=== PATIENT | male | born 1980 | race Caucasian/White ===

== ENCOUNTER 2023-07-28 14:56 | Emergency (ER) | payer MEDICAID ==
[~2023-07-28] VITALS: Ht 170.2 cm; Wt 90.7 kg
[2023-07-28 15:01] VITALS: BP 123/77; PULSE 81; RESP 18; TEMP 98; O2SAT 98
[2023-07-28] MEDS ORDERED: ACET-10509 PO (15:34)
[2023-07-28] MEDS ORDERED: BACTO TP (15:34)
[2023-07-28 15:44] VITALS: BP 123/77; PULSE 81; RESP 18; TEMP 98; O2SAT 98
== END 2023-07-28 15:44 | disposition home or self-care (01) ==
LOC: MED 14:56
DX: S80.812A Abrasion, left lower leg, initial encounter (principal); S00.81XA Abrasion of other part of head, initial encounter; S80.211A Abrasion, right knee, initial encounter; Y04.0XXA Assault by unarmed brawl or fight, initial encounter; Y93.89 Activity, other specified; Y92.89 Other specified places as the place of occurrence of the external cause; Y99.8 Other external cause status
CPT/HCPCS: 99283